=== PATIENT | female | born 1960 | race African-American/Black ===

== ENCOUNTER 2024-05-31 12:07 | Emergency (ER) | payer OTHER, BC ==
[2024-05-31 13:24] VITALS: BMI 36.6
[2024-05-31 13:26] LABS: BASO % 0.8 % (0-2.0); EOS % 2.4 % (0-4.5); HEMATOCRIT 42.1 % (32.4-45.2); HEMOGLOBIN 13.8 GM/dL (10.7-15.3); LYMPH % 17.4 % (8-40); MCH 27.9 pg (25.7-33.7); MCHC 32.7 g/dl (32.0-36.0); MEAN CELL VOLUME 85.3 fl (80-96); MEAN PLT VOLUME 8.4 fl (7.5-11.1); MONO % 6.3 % (3.8-10.2); NEUT % 73.1 % (42.8-82.8); PLATELET COUNT 336 10^3/uL (134-434); RBC 4.94 M/mm3 (3.60-5.2); RDW 14.6 % (11.6-15.6)
[2024-05-31 13:53] LABS: POTASSIUM 4.3 mmol/L (3.5-5.1)
[2024-05-31 13:57] LABS: CALCIUM 10.2 mg/dL (8.5-10.1)
[2024-05-31 13:58] LABS: ALBUMIN 4.2 g/dl (3.4-5.0); BLOOD UREA NITROGEN 13.7 mg/dL (7-18)
[2024-05-31 14:00] LABS: CREATININE 0.9 mg/dL (0.55-1.3)
[2024-05-31 14:02] LABS: BILIRUBIN,TOTAL 0.6 mg/dL (0.2-1); TOT PROT 7.7 g/dl (6.4-8.2)
[2024-05-31 16:11] VITALS: BP 119/80; PULSE 97; RESP 19; TEMP 98.5
== END 2024-05-31 16:05 | disposition home or self-care (01) ==
LOC: JER 12:07
DX: T40.2X1A Poisoning by other opioids, accidental (unintentional), initial encounter (principal); R55 Syncope and collapse; R42 Dizziness and giddiness
CPT/HCPCS: 36415; 71045-TC-FY; 80053; 82962; 83605; 83735; 84484; 85025; 93005; 93010; 99285-25